=== PATIENT | male | born 2000 | race African-American/Black ===

== ENCOUNTER 2020-06-10 18:58 | Emergency (ER) | payer MEDICAID ==
[~2020-06-10] VITALS: Ht 172.7 cm; Wt 80.7 kg
[2020-06-10] MEDS ORDERED: LORazepam 2 MG/ML VIAL IVP ONE (19:05)
[2020-06-10] MEDS ORDERED: DEXAMETHASONE 10 MG/ML VIAL IVP ONE (19:05)
--- NOTE | 2020-06-10 19:19 | NUR ---
Patient taken to xray via w/c.
--- NOTE | 2020-06-10 19:20 | NUR ---
Roslyn carrasquillo in ED - 06/10/20 at 2002 by [email or web address] TAKEN TO [facility].
--- NOTE | 2020-06-10 19:26 | NUR ---
PATIENT BIBA S/P EATING STATING "FEELS LIKE THERES SOMETHING STUCK IN MY THROAT." PATIENT NOTED WITH EXCESSIVE COUGHING AND TRYING TO CATCH BREATH. PATIENT REPORTS "I WAS EATING A BURGER AND THEN HAD A REALLY SHARP PAIN IN MY THROAT THAT WONT GO AWAY." SKIN IS PINK, WARM AND DRY. CAP REFILL < 3 SECONDS. O2 98% ON R.A. HR 133 BPM NOTED. PATIENT ABLE TO SPEAK CLEARLY. A & O X4. MED HX: DENIES ALLERGIES: "ALL BERRIES"
--- NOTE | 2020-06-10 19:26 | NUR ---
REPORT RECIEVED FROM ROSALINO WARNER AND ROSALINO MARTIN FOR CHANGE OF SHIFT REPORT.
--- NOTE | 2020-06-10 19:26 | NUR ---
REPORT GIVEN TO ROSALINO SHELTON. TRANSFER OF CARE AT THIS TIME.
[2020-06-10 19:33] LABS: HEMATOCRIT 43.2 % (36-52); HEMOGLOBIN 14.3 g/dL (12.0-18.0); MEAN CORPUSCULAR HEMOGLOBIN 27 pg (27-31); MEAN CORPUSCULAR HGB CONC 33 g/dL (33-37); MEAN CORPUSCULAR VOLUME 82.3 fL (80-94); PLATELET COUNT (AUTO) 214 K/uL (140-450); RED BLOOD CELL COUNT(AUTO) 5.25 MIL/uL (4.20-6.10); RED CELL DISTRIBUTION WIDTH 13.7 % (11.6-13.7); WHITE BLOOD COUNT (AUTO) 7.5 K/uL (4.5-11.0)
[2020-06-10 19:47] LABS: ALBUMIN 4.9 g/dL (3.4-5.0); CARBON DIOXIDE 23.6 mmol/L (21-32); CREATININE 1.2 mg/dL (0.6-1.3); POTASSIUM 3.6 mmol/L (3.5-5.1); TOTAL BILIRUBIN 0.5 mg/dL (0.0-1.0)
[2020-06-10 19:51] LABS: EOSINOPHILS % (MANUAL) 2 % (0-4); LYMPHOCYTES % (MANUAL) 78 % (20-46); MONOCYTES % (MANUAL) 1 % (5-12)
--- NOTE | 2020-06-10 20:00 | NUR ---
PATIENT NOTED TO STOP COUGHING. UPON ASSESSMENT, PATIENT STATED "I COUGHED UP A CHUNK OF BURGER AND FEEL A LOT BETTER." PIECE OF BURGER NOTED IN EMESIS BAG. VSS. PATIENT SPEAKING CLEARLY, WITH NO NOTED RESPIRATORY DISTRESS.
--- NOTE | 2020-06-10 20:30 | NUR ---
ERMD AT BEDSIDE.
[2020-06-10 21:17] VITALS: BP 126/62
--- NOTE | 2020-06-10 21:17 | NUR ---
Patient discharged with v/s stable. Written and verbal after care instructions given and explained. Patient verbalized understanding. Ambulatory with steady gait. All questions addressed prior to discharge. Advised to follow up with PMD.
== END 2020-06-10 21:38 | disposition home or self-care (01) ==
LOC: MED 18:58
DX: T78.40XA Allergy, unspecified, initial encounter (principal); F12.10 Cannabis abuse, uncomplicated; Z91.018 Allergy to other foods
CPT/HCPCS: 36415; 70360; 71045; 80053; 85025; 96374; 96375; 99284; J1100; J2060